=== PATIENT | female | born 1940 | race Caucasian/White ===

== ENCOUNTER 2017-11-17 16:01 | Emergency (ER) | payer MEDICARE, OTHER ==
[~2017-11-17] VITALS: Ht 157.5 cm; Wt 86.4 kg
[~2017-11-17 16:01] MED LIST: ALLEGRA-D 1212 HOUR PO; ALLERGY RELF10 M3 OR; AMARYL2 MG OR; AMITRIPTYLIN150 MG OR; AMITRIPTYLIN75 MG OR; AMLODIPINE5 MG PO; AVALIDE1 TA1 OR; BACTROBAN21 EX; BL ADULT ASA81 MG OR; BUT/APAP/CAF PO; CALCIUM500 M1 OR; COMPAZINE10 MG OR; COUMADIN5 MG PO; COUMADIN7.5 MG PO; D31000 UNIT OR; DEMADEX100 MG PO; FERROUS SULF325 M1 PO; HYDROXYZ HCL25 MG OR; LIPITOR40 MG OR; LISINOPRIL20 MG PO; LOPRESSOR25 MG OR; LORTAB 5 OR; Levaquin OR; MECLIZINE25 M1 OR; NAMENDA1 TAB OR; NAMENDA5 MG OR; POT CHLORIDE20 ME3 OR; PREDNISONE20 MG OR; PROMETHEGAN50 MG RE; PROTONIX40 M2 OR; PROTONIX40 MG PO; SYNTHROID200 MCG OR; TRAMADOL HCL50 MG OR; TRANXENE T15 MG OR; TRAZODONE100 MG OR; TRIAMCINOLON0.13 EX; VIT A & D OR; VITAMIN C1000 MG OR; [UNRECOGNIZED DRUG - CODE] OR
[2017-11-17 17:03] LABS: HEMATOCRIT 35.3 % (37.0-47.0); HEMOGLOBIN 11.9 g/dl (12.0-16.0); IMMATURE GRANULOCYTES 0.6 % (0.0-1.0); MEAN CELL VOLUME 91.9 fL CALC (80.0-100.0); MEAN CORPUSCULAR HGB CONC 33.7 g/L CALC (32.0-36.0); NEUT# 5.37 thou/uL (2.00-7.15); RED BLOOD COUNT 3.84 mill/uL (4.20-5.60); RED CELL DISTRI WIDTH 13.1 % (11.5-15.5)
[2017-11-17] MEDS ORDERED: FUROSEMIDE20 MG PO (17:06)
[2017-11-17] MEDS ORDERED: PRADAXA150 MG PO (17:07)
[2017-11-17] MEDS ORDERED: MIRTAZAPINE15 MG PO (17:12)
[2017-11-17] MEDS ORDERED: LEXAPRO10 MG PO (17:13)
[2017-11-17] MEDS ORDERED: LOSARTAN POTASS25 MG PO (17:14)
[2017-11-17] MEDS ORDERED: MEMANTINE HCL10 MG PO (17:16)
[2017-11-17 17:30] LABS: ALBUMIN 4.1 g/dL (3.2-5.0); BILIRUBIN, TOTAL 0.3 mg/dL (0.0-1.4); CALCIUM 9.1 mg/dL (8.4-10.2); CREATININE 1.5 mg/dL (0.5-1.0); POTASSIUM 4.6 mmol/l (3.5-5.1)
[2017-11-17 19:25] LABS: URINE BILIRUBIN - DIPSTICK NEGATIVE (NEGATIVE); URINE BLOOD DIPSTICK TRACE-INTACT (NEGATIVE); URINE COLOR YELLOW; URINE GLUCOSE - DIPSTICK >=1000 mg/dL (NEGATIVE); URINE KETONE NEGATIVE (NEGATIVE); URINE LEUK ESTERASE NEGATIVE (NEGATIVE); URINE NITRITE - DIPSTICK NEGATIVE (Negative); URINE PROTEIN - DIPSTICK 30 mg/dL (NEG-TRACE); URINE SPECIFIC GRAVITY 1.015; URINE UROBILINOGEN - DIPSTICK 0.2 E.U./dL (0.2)
[2017-11-17 19:31] LABS: URINE CLARITY CLEAR
[2017-11-17 19:42] LABS: URINE RBC 0-2 RBC/hpf (0-5)
[2017-11-17 19:43] LABS: URINE SQUAMOUS EPITHELIAL CELL FEW EPI/hpf (0-FEW); URINE WBC 0-2 WBC/hpf (0-5)
[2017-11-17 19:49] VITALS: BP 181/87
== END 2017-11-17 20:05 | disposition home or self-care (01) ==
LOC: ED 16:01
PROVIDERS: Emergency Medicine
DX: E11.65 Type 2 diabetes mellitus with hyperglycemia (principal); I10 Essential (primary) hypertension; E78.00 Pure hypercholesterolemia, unspecified; R53.1 Weakness; R06.02 Shortness of breath; R50.9 Fever, unspecified; I48.91 Unspecified atrial fibrillation; Z79.01 Long term (current) use of anticoagulants